=== PATIENT | female | born 1975 | race Asian ===

== ENCOUNTER 2020-07-16 04:06 | Day surgery (SDC) | payer OTHER ==
[2020-07-12 11:24] VITALS: BMI 27.4
[2020-07-16] MEDS ORDERED: PROPOFOL 20 ML ONE (12:53)
[2020-07-16] MEDS ORDERED: MIDAZOLAM HCL 2 MG/2 ML SINGLE DOSE VIAL ONE (12:53)
[2020-07-16] MEDS ORDERED: ceFAZolin SODIUM 1 GM VIAL ONE (13:04)
[2020-07-16] MEDS ORDERED: DEXAMETHASONE SOD PHOSPHATE 4 MG/1 ML VIAL ONE (13:04)
[2020-07-16] MEDS ORDERED: LIDOCAINE HCL/PF 2% SDV 5ML VIAL ONE (13:04)
[2020-07-16] MEDS ORDERED: ceFAZolin SODIUM 1 GM VIAL IVPB ONE (13:04)
[2020-07-16] MEDS ORDERED: ONDANSETRON 4 MG/2 ML VIAL ONE (13:04)
[2020-07-16] MEDS ORDERED: oxyCODONE HCL 5 MG TABLET PO PRN (13:53)
[2020-07-16] MEDS ORDERED: PROMETHAZINE HCL 25 MG/1 ML VIAL IVPUSH PRN (13:53)
[2020-07-16] MEDS ORDERED: ONDANSETRON 4 MG/2 ML VIAL IVPUSH PRN (13:53)
[2020-07-16 17:25] VITALS: BP 128/76; PULSE 68; TEMP 98.1
== END 2020-07-16 17:20 | disposition home or self-care (01) ==
LOC: JASU-SURG 04:06
PROVIDERS: ATTEND Obstetrics & Gynecology
PROC: 0U5B8ZZ Destruction of Endometrium, Via Natural or Artificial Opening Endoscopic (ICD-10-PCS; principal; 2020-07-16 12:00)
PROC: 0UDB7ZX Extraction of Endometrium, Via Natural or Artificial Opening, Diagnostic (ICD-10-PCS; 2020-07-16 12:00)
DX: N92.1 Excessive and frequent menstruation with irregular cycle (principal); D25.9 Leiomyoma of uterus, unspecified; N80.0 Endometriosis of uterus
CPT/HCPCS: 84703; 86850; 86900; 86901; 94760